=== PATIENT | male | born 1990 | race Two or more races ===

== ENCOUNTER 2023-09-28 16:57 | Emergency (ER) | payer OTHER ==
[~2023-09-28] VITALS: Ht 182.9 cm; Wt 138.4 kg
[2023-09-28] MEDS ORDERED: IPRATROPIUM BROM 0.5 MG/2.5ML INH SOL NEB ONE (21:45)
[2023-09-28] MEDS ORDERED: ALBUTEROL SULF 2.5 MG/0.5ML(0.5%) NEB SOLN NEB ONE (21:45)
[2023-09-28] MEDS ORDERED: methylPREDNISolone SOD SUCC 125 MG/2 ML VL IM ONE (21:45)
[2023-09-28] MEDS ORDERED: IPRATROPIUM BROM 0.5 MG/2.5ML INH SOL ONE (21:50)
[2023-09-28] MEDS ORDERED: ALBUTEROL SULF 2.5 MG/0.5ML(0.5%) NEB SOLN ONE (21:50)
[2023-09-28] MEDS ORDERED: AZITTAB PO (23:44)
[2023-09-28] MEDS ORDERED: METH4PAK PO (23:44)
[2023-09-28] MEDS ORDERED: ALBU108A5 IN (23:44)
[2023-09-29 01:01] VITALS: BP 136/79; TEMP 98.3
[2023-09-29 01:02] VITALS: PULSE 79; RESP 20; O2SAT 95
== END 2023-09-29 01:05 | disposition home or self-care (01) ==
LOC: EDBD 16:57 → ER 16:57
DX: J06.9 Acute upper respiratory infection, unspecified (principal)
CPT/HCPCS: 71046; 71250; 94640; 96372; 99285; J2930; J7644